=== PATIENT | male | born 1975 | race Caucasian/White ===

== ENCOUNTER 2021-04-16 10:09 | Outpatient (CLI) | payer OTHER, SELFPAY ==
--- NOTE | ~2021-04-16 | XR_ITS ---
XR chest 2V DATE: 04/16/2021 10:39 INDICATION: Chronic cough for one month. Smoker. TECHNIQUE: PA and lateral views COMPARISON: None FINDINGS: Normal heart size. No hilar or mediastinal enlargement. There is moderate hyperinflation of the lungs. No pulmonary infiltrate or consolidation, pleural effu steve or pulmonary vascular congestion or pneumothorax is detected. IMPRESSION: Moderate hyperinflation; no active cardiopulmonary disease Reviewed, dictated and finalized at location B.
[2021-04-16 10:50] LABS: Basophils Absolute Auto 0.03 K/mm3 (0.00-0.10); Basophils Percent Auto 0.3 % (0.0-1.0); Eosinophils Absolute Auto 0.09 K/mm3 (0.02-0.50); Hematocrit 38.5 % (40.0-54.0); Hemoglobin 13.3 g/dL (14.0-18.0); Immature Granulocyte Absolute 0.04 K/mm3 (0.00-0.00); Immature Granulocyte Percent A 0.4 % (0.0-0.0); Lymphocytes Absolute Auto 1.83 K/mm3 (1.10-4.50); Lymphocytes Percent Auto 19.9 % (18.0-42.0); Mean Corpuscular HGB Conc 34.5 g/dL (32.0-36.0); Mean Corpuscular Hemoglobin 34.2 pg (27.0-31.0); Mean Platelet Volume 10.2 fl (8.7-11.0); Monocytes Absolute Auto 0.98 K/mm3 (0.10-0.90); Monocytes Percent Auto 10.6 % (2.0-11.0); Neutrophils Absolute Auto 6.2 K/mm3 (1.7-7.2); Neutrophils Percent Auto 67.8 % (50.0-70.0); Platelet Count Result 246 K/mm3 (150-420); Red Blood Count 3.89 M/mm3 (4.70-6.10); Red Cell Distribution Width 13.3 % (11.6-14.4); White Blood Count 9.2 K/mm3 (4.8-10.8)
[2021-04-16 10:53] LABS: Add Urine Microscopic? YES; Appearance Urine Clear (Clear); Bilirubin Urine 2+ (Negative); Blood Urine Negative (Negative); Color Urine Dark Yellow (Yellow); Glucose Urine UA Negative (Negative); Ketones Urine Trace (Negative); Leukocyte Esterase Ur Negative (Negative); Nitrate Urine Negative (Negative); Protein Urine 2+ (Negative); Specific Grav Ur >= 1.030 (1.010-1.020); pH Urine 5.5 (5.0-8.0)
[2021-04-16 10:59] LABS: Bacteria Urine Trace /hpf; RBC Urine None seen /hpf (0-2); Squamous Epithelial Cell Urine Few /hpf (Few); WBC Urine None seen /hpf (0-3)
[2021-04-16 11:30] LABS: Alanine Aminotransferase 111 U/L (16-63); Albumin Level 4.2 g/dL (3.4-5.0); Alkaline Phosphatase 135 U/L (46-116); Anion Gap 13 mmol/L (8-16); Aspartate Amino Transferase 124 U/L (15-37); Bilirubin,Total 0.9 mg/dL (0.00-1.00); Blood Urea Nitrogen 13 mg/dL (7-18); Calcium 9.1 mg/dL (8.5-10.1); Carbon Dioxide 26 mmol/L (21-32); Chloride 100 mmol/L (98-108); Estimated Glomerular Filt Rate > 60; Glucose 110 mg/dL (70-99); Osmolality Calculated 289 mOsm/kg (285-295); Potassium 3.8 mmol/L (3.5-5.1); Sodium 139 mmol/L (136-145); Thyroid Stimulating Hormone 3.04 uIU/mL (0.36-3.74); Total Protein 7.5 g/dL (6.4-8.2)
[2021-04-16 11:38] LABS: SARS-CoV-2 RNA PCR Negative (Negative)
[2021-04-20 14:24] LABS: SARS-CoV-2 IgG <1.00 Index (<1.00)
== END 2021-04-16 10:10 | disposition home or self-care (01) ==
PROVIDERS: PCP Internal Medicine; Visit Provider Internal Medicine
DX: R05.3 Chronic cough (principal); I10 Essential (primary) hypertension; Z20.822 Contact with and (suspected) exposure to COVID-19
CPT/HCPCS: 36415; 71046; 80053; 81001; 84443; 85025; 86769; C9803; U0003; U0005

== ENCOUNTER 2021-05-09 19:33 | Emergency (ER) | payer OTHER, SELFPAY ==
[2021-05-09 19:44] VITALS: BP 136/88; PULSE 123; RESP 18; TEMP 36.9; O2SAT 99
--- NOTE | 2021-05-09 19:48 | ED.OVERDOSE ---
HPI - Overdose General Chief Complaint: Psychiatric Symptoms Stated Complaint: ambulance Source: patient History of Present Illness HPI Narrative: Patient did methamphetamine 2 days ago and now experiencing paranoia and hallucinations. Due to the methamphetamine use he has not slept in the last 2 days as well. complaint: accidental overdose Onset (ago): day(s) (2) How Overdose Was Discovered: called 911 Context: Accidental Overdose: wanted to get high Associated symptoms: paranoia and hallucinations Treatments Prior to Arrival: none Related Data Home Medications Medication Instructions Recorded Confirmed atenolol 50 mg PO DAILY 05/09/21 05/09/21 fluticasone propion-salmeterol 250 inh INHALATION PRN PRN 05/09/21 05/09/21 quetiapine 25 mg PO DAILY 05/09/21 05/09/21 Allergies Allergy/AdvReac Type Severity Reaction Status Date / Time No Known Allergies Allergy Verified 05/09/21 19:41 Review of Systems Review of Systems: All systems reviewed & are unremarkable except as noted in HPI and below PMFSH Past Medical History Medical History (Updated 05/09/21 @ 21:32 by Myke Ovalle MD) COPD (chronic obstructive pulmonary disease) Hypertension Social History Social History (Updated 05/09/21 @ 22:32 by Myke Ovalle MD) Smoking packs per day: 1 Smoking cigarettes per day: 20.0 Smoking status: Current every day smoker Tobacco type: cigarettes Substance use: current Substance use type: marijuana, sedatives and methamphetamine Exam Const: General: healthy appearing, no acute distress and alert HENMT: Head: normal to inspection Ears: external ears normal Mouth: Yes moist mucous membranes Eyes: Periorbital: periorbital findings normal Eyelids: eyelids normal Conjunctivae: conjunctivae normal Sclera: sclerae normal Pupils: Dilated pupils bilaterally EOM: EOMs intact bilaterally Neck: Neck: normal visual inspection Resp: Effort & Inspection: normal respiratory effort Auscultation: clear to auscultation bilaterally Cardio: Rate: regular rate Rhythm: regular rhythm GI: GI Palp: Yes Soft to palpation, No Tenderness to palpation present (GI) and No Guarding due to palpation present (GI) Auscultation: normal bowel sounds Back/Spine/Pelvis: Cervical Spine: cervical ROM normal Thoracic/Lumbar Spine: thoraco-lumbar ROM normal Skin: General skin exam: normal color Rashes: no rashes Neuro: General: patient oriented x3, moves all extremities, no meningeal signs and no focal motor deficits Speech: normal speech Gait exam (Neuro): Normal gait present Motor exam (neuro): 5/5 motor strength present throughout and Motor abnormalities not present Extrem: General: normal to inspection and no clubbing, cyanosis or edema Psych: Appearance: grossly normal Speech and movement: Clear speech present Affect: Anxious affect present Attitude: cooperative Thought process: Circumstantial thought process present Thought content: Yes Paranoid delusions present Course Course Emergency Course: Patient has a responsible green party to come and get him. He had 1 mg of Ativan which has helped him calm down and focus better. He feels comfortable going home. Vital Signs Vital signs: Vital Signs Temperature 36.9 C 05/09/21 19:44 Pulse Rate 123 H 05/09/21 19:44 Respiratory Rate 18 05/09/21 19:44 Blood Pressure 136/88 05/09/21 19:44 Pulse Oximetry 99 05/09/21 19:44 Temperature 36.9 C 05/09/21 19:44 Pulse Rate 123 H 05/09/21 19:44 Respiratory Rate 18 05/09/21 19:44 Blood Pressure 136/88 05/09/21 19:44 Pulse Oximetry 99 05/09/21 19:44 Discharge Plan Discharge Clinical Impression: Amphetamine or stimulant drug abuse Patient Disposition: Home, Self-Care Condition: Stable Instructions: Methamphetamine Abuse (ED) Prescriptions: No Action quetiapine 25 mg tablet 25 mg PO DAILY RF: 0 fluticasone propion-salmeterol 250-50 mcg/dose blister with device
[2021-05-09] MEDS: LORazepam (*CRX) 1 MG TABLET PO (20:03)
[2021-05-09 20:07] LABS: Basophils Absolute Auto 0.03 K/mm3 (0.00-0.10); Basophils Percent Auto 0.2 % (0.0-1.0); Eosinophils Absolute Auto 0.03 K/mm3 (0.02-0.50); Eosinophils Percent Auto 0.2 % (1.0-6.0); Hematocrit 34.7 % (40.0-54.0); Hemoglobin 12.3 g/dL (14.0-18.0); Immature Granulocyte Absolute 0.12 K/mm3 (0.00-0.00); Immature Granulocyte Percent A 0.6 % (0.0-0.0); Lymphocytes Absolute Auto 0.75 K/mm3 (1.10-4.50); Mean Corpuscular HGB Conc 35.4 g/dL (32.0-36.0); Mean Corpuscular Hemoglobin 35.2 pg (27.0-31.0); Mean Corpuscular Volume 99.4 fL (78.0-102.0); Mean Platelet Volume 10.2 fl (8.7-11.0); Monocytes Absolute Auto 1.06 K/mm3 (0.10-0.90); Monocytes Percent Auto 5.7 % (2.0-11.0); Neutrophils Absolute Auto 16.5 K/mm3 (1.7-7.2); Neutrophils Percent Auto 89.3 % (50.0-70.0); Platelet Count Result 255 K/mm3 (150-420); Red Blood Count 3.49 M/mm3 (4.70-6.10); Red Cell Distribution Width 12.7 % (11.6-14.4); White Blood Count 18.5 K/mm3 (4.8-10.8)
[2021-05-09 20:17] LABS: Alanine Aminotransferase 43 U/L (16-63); Albumin Level 4.7 g/dL (3.4-5.0); Alkaline Phosphatase 89 U/L (46-116); Anion Gap 14 mmol/L (8-16); Aspartate Amino Transferase 56 U/L (15-37); Bilirubin,Total 1.4 mg/dL (0.00-1.00); Blood Urea Nitrogen 21 mg/dL (7-18); Calcium 9.7 mg/dL (8.5-10.1); Carbon Dioxide 26 mmol/L (21-32); Chloride 96 mmol/L (98-108); Estimated CRCL calculation 51 ml/min; Estimated Glomerular Filt Rate 48; Glucose 103 mg/dL (70-99); Osmolality Calculated 285 mOsm/kg (285-295); Potassium 3.3 mmol/L (3.5-5.1); Sodium 136 mmol/L (136-145); Total Protein 8.3 g/dL (6.4-8.2)
[2021-05-09 20:18] LABS: Acetaminophen < 2 ug/mL (10-30); Amphetamine Screen Urine Positive (Negative); Barbiturate Screen Urine Negative (Negative); Benzodiazepines Screen Urine Positive (Negative); Cannabinoid Screen Urine Positive (Negative); Cocaine Screen Urine Negative (Negative); Ethanol < 3 mg/dL (0-6); Methadone Screen Urine Negative (Negative); Opiate Screen Urine Negative (Negative); Phencyclidine Screen Urine Negative (Negative)
[2021-05-09 21:31] VITALS: BP 137/82; PULSE 104; RESP 18; O2SAT 96
== END 2021-05-09 21:35 | disposition home or self-care (01) ==
PROVIDERS: Emergency Provider Emergency Medicine; PCP Internal Medicine
DX: F15.10 Other stimulant abuse, uncomplicated (principal)
CPT/HCPCS: 36415; 80053; 80307; 85025; 99283; A9270

== ENCOUNTER 2021-09-05 17:23 | Emergency (ER) | payer OTHER, SELFPAY ==
--- NOTE | ~2021-09-05 | CT_ITS ---
EXAMINATION: CT abdomen pelvis wo con DATE: 09/05/2021 19:10 INDICATION: Renal stone presenting with left flank pain TECHNIQUE: Computed tomography (CT) of the abdomen and pelvis was performed without intravenous contr ast. Automated exposure control and iterative reconstruction technique were employed. The dose-length product was 176.98 mGy-cm. COMPARISON: 08/10/2014 FINDINGS: Unchanged 4 mm noncalcified granuloma in the right lower lobe. There are additional small calcified g ranuloma at the left lower lobe and lingula. Heart size is normal. No pericardial or pleural effusion . Diffuse hepatic steatosis. Gallbladder, spleen, pancreas, bilateral adrenal glands are normal. Kidn eys and ureters are normal with no urolithiasis, hydroureteronephrosis or perinephric/ureteral strand ing. Bladder is normal. Bowels are normal. The appendix is not visualized. No pericecal inflammatory change to suggest acute appendicitis. No free intraperitoneal gas or fluid. No pathologically enlarge d abdominal or pelvic lymphadenopathy. Mild lumbar spondylosis. IMPRESSION: 1. No urolithiasis or acute intra-abdominal/pelvic process. 2. Diffuse hepatic steatosis. Reviewed, dictated and finalized at location A. ICE MEMBER
--- NOTE | 2021-09-05 17:36 | ED.ABDPAIN ---
HPI - Abdominal Pain General Chief Complaint: Abdominal Pain Stated Complaint: ab pain on left side Time Seen by Provider: 09/05/21 17:36 Source: patient Mode of arrival: ambulatory History of Present Illness HPI narrative: 45-year-old male, alcoholic with a past medical history of hypertension, kidney stones, presents to the ER with left flank pain for the past 3 days. The patient also complained of some gastric upset for which he has been taking Cora TELLEZ elicited complaint: flank pain Pertinent past history: none Onset (ago): day(s) ( 3 days) Pain Consistency: intermittent Location: L flank Severity: severe Quality: aching Radiation: L flank Migration to: no migration Exacerbating factors: nothing Relieving factors: nothing Associated symptoms: denies other symptoms Related Data Home Medications Medication Instructions Recorded Confirmed atenolol 50 mg PO DAILY 05/09/21 09/05/21 quetiapine [Seroquel] 25 mg PO HS 05/09/21 09/05/21 Allergies Allergy/AdvReac Type Severity Reaction Status Date / Time No Known Allergies Allergy Verified 09/05/21 17:52 Review of Systems Review of Systems: All systems reviewed & are unremarkable except as noted in HPI and below Constitutional: Constitutional: Reports as per HPI Eyes: Eyes: Reports as per HPI ENT: Reports system reviewed and no additional complaints, except as documented Cardiovascular: Cardiovascular: Reports as per HPI and Reports no additional cardiovascular complaints Respiratory: Respiratory: Reports as per HPI and Reports no additional respiratory complaints Gastrointestinal: Gastrointestinal: Reports as per HPI, Reports no additional gastrointestinal complaints and Reports heartburn Comments: left flank pain Genitourinary: Genitourinary: Reports no additional male genitourinary complaints Comments: denied dysuria or hematuria Musculoskeletal: Musculoskeletal: Reports no additional musculoskeletal complaints and Reports as per HPI Integumentary/Breasts: Skin/Breast: Reports system reviewed and no additional complaints, except as docu Neurologic: Reports system reviewed and no additional complaints, except as documented Psychiatric: Psychiatric: Reports no additional psychiatric complaints Endocrine: Endocrine: Reports no additional endocrine complaints Hematologic/Lymphatic: Hematologic/Lymphatic: Reports no additional hematologic/lymphatic complaints Allergic/Immunologic: Allergic/Immunologic: Reports no additional allergic/immunologic complaints [facility] Past Medical History Medical History (Updated 09/05/21 @ 19:58 by King Vila MD) COPD (chronic obstructive pulmonary disease) Hypertension Kidney stone Social History Social History Smoking packs per day: 1 Smoking cigarettes per day: 20.0 Smoking status: Current every day smoker Tobacco type: cigarettes Substance use: current Substance use type: marijuana, sedatives and methamphetamine Exam Const: General: no acute distress and alert Orientation/consciousness: patient oriented x3 HENMT: Head: normal to inspection Eyes: Conjunctivae: conjunctivae normal Pupils: Equal, round and reactive pupils present Neck: Neck: normal visual inspection and no lymphadenopathy Chest: Chest palpation & inspection: normal inspection of the chest Resp: Effort & Inspection: normal respiratory effort Auscultation: clear to auscultation bilaterally Cardio: Rate: regular rate GI: GI Palp: Yes Soft to palpation and Yes Tenderness to palpation present (GI) Other: tenderness in the left flank and the left CVA angle. No rigidity /rebound : General: Yes CVA tenderness Back/Spine/Pelvis: Back: no CVA tenderness Skin: General skin exam: normal color Rashes: no rashes Neuro: General: patient oriented x3 Extrem: General: normal to inspection Psych: Mental Status: mental status grossly normal Cour
[2021-09-05 17:44] VITALS: BP 122/84; PULSE 96; RESP 20; TEMP 36.6; O2SAT 96
[2021-09-05 18:14] LABS: Basophils Absolute Auto 0.02 K/mm3 (0.00-0.10); Basophils Percent Auto 0.2 % (0.0-1.0); Hematocrit 42.8 % (40.0-54.0); Hemoglobin 14.2 g/dL (14.0-18.0); Immature Granulocyte Absolute 0.04 K/mm3 (0.00-0.00); Immature Granulocyte Percent A 0.4 % (0.0-0.0); Lymphocytes Percent Auto 24.2 % (18.0-42.0); Mean Corpuscular HGB Conc 33.2 g/dL (32.0-36.0); Mean Corpuscular Volume 99.5 fL (78.0-102.0); Mean Platelet Volume 10.2 fl (8.7-11.0); Monocytes Absolute Auto 0.94 K/mm3 (0.10-0.90); Monocytes Percent Auto 9.1 % (2.0-11.0); Neutrophils Absolute Auto 6.7 K/mm3 (1.7-7.2); Neutrophils Percent Auto 65.1 % (50.0-70.0); Platelet Count Result 257 K/mm3 (150-420); Red Cell Distribution Width 12.8 % (11.6-14.4); White Blood Count 10.3 K/mm3 (4.8-10.8)
[2021-09-05] MEDS: KETOROLAC 30 MG/ML VIAL (*BKC) IV PUSH (18:17)
[2021-09-05] MEDS: SODIUM CHLORIDE 0.9% IV 500 ML 999 ML IV CONT (18:17)
[2021-09-05 18:29] LABS: Partial Thromboplastin Time 25.6 SEC (23.90-30.70); Prothrombin Time 10.3 Seconds (9.50-12.10)
[2021-09-05 18:30] LABS: Alanine Aminotransferase 160 U/L (16-63); Alkaline Phosphatase 85 U/L (46-116); Anion Gap 9 mmol/L (8-16); Aspartate Amino Transferase 115 U/L (15-37); Bilirubin,Total 0.3 mg/dL (0.00-1.00); Blood Urea Nitrogen 11 mg/dL (7-18); Calcium 8.2 mg/dL (8.5-10.1); Carbon Dioxide 30 mmol/L (21-32); Chloride 106 mmol/L (98-108); Estimated CRCL calculation 98 ml/min; Estimated Glomerular Filt Rate > 60; Glucose 103 mg/dL (70-99); Lipase 148 U/L (73-393); Osmolality Calculated 299 mOsm/kg (285-295); Potassium 3.5 mmol/L (3.5-5.1); Sodium 145 mmol/L (136-145); Total Protein 7.5 g/dL (6.4-8.2)
[2021-09-05 18:32] LABS: Add Urine Microscopic? NO; Appearance Urine Clear (Clear); Bilirubin Urine Negative (Negative); Blood Urine Negative (Negative); Color Urine Light Yellow (Yellow); Glucose Urine UA Negative (Negative); Ketones Urine Negative (Negative); Leukocyte Esterase Ur Negative (Negative); Nitrate Urine Negative (Negative); Protein Urine Negative (Negative); Specific Grav Ur <= 1.005 (1.010-1.020); Urobilinogen Urine 0.2 mg/dL (0.2-1.0)
[2021-09-05 18:35] LABS: Lactic Acid Reflex 1.6 mmol/L (0.4-2.0)
[2021-09-05] MEDS: HYDROmorphone HCL INJ (*CRX) 2 MG/ML VIAL 0.5 MG IV PUSH (19:13)
[2021-09-05] MEDS: ONDANSETRON HCL ODT 4 MG TABLET PO (19:14)
[2021-09-05 20:04] VITALS: PULSE 88; RESP 16; TEMP 36.6; O2SAT 98
== END 2021-09-05 20:06 | disposition home or self-care (01) ==
PROVIDERS: Emergency Provider Internal Medicine Critical Care Medicine; PCP Internal Medicine
DX: R10.9 Unspecified abdominal pain (principal); K70.0 Alcoholic fatty liver
CPT/HCPCS: 36415; 74176; 80053; 81003; 83605; 83690; 85025; 85610; 85730; 96361; 96374; 96375; 99284; A9270; J1170; J1885; J7040

== ENCOUNTER 2021-09-09 09:37 | Emergency (ER) | payer OTHER, SELFPAY ==
--- NOTE | ~2021-09-09 | XR_ITS ---
EXAMINATION: XR chest 1V portable 09/09/2021 11:34 INDICATION: Left lower chest wall pain PROCEDURE: AP portable chest COMPARISON: 04/16/2021 FINDINGS: The lungs are clear. The cardiomediastinal silhouette is within normal limits. There are no pleural effusions. There is no pneumothorax suspected. IMPRESSION: 1: NO ACUTE CARDIOPULMONARY DISEASE. Reviewed, dictated and finalized at location B. [employer] SUPERVISOR
--- NOTE | ~2021-09-09 | CT_ITS ---
EXAMINATION: CT abdomen pelvis w con DATE: 09/09/2021 11:22 INDICATION: Left-sided transient bruising and pain for 4 days. TECHNIQUE: Computed tomography (CT) of the abdomen and pelvis was performed with 100 cc Omnipaque 350 intravenous contrast. The dose-length product was 329.02 mGy-cm. Automated exposure control and iter ative reconstruction technique were employed. COMPARISON: CT dated 09/05/2021. FINDINGS: Lung bases are unremarkable. No significant pleural or pericardial effusion. Fatty infiltration of the liver. The spleen, pancreas, adrenal glands and kidneys are unremarkable. N o significant soft tissue abnormality. No free air or free fluid. Colonic diverticulosis without dive rticulitis. No significant vascular abnormality. No lymphadenopathy. Gallbladder is present. No free air or free fluid. Small fat-containing umbilical hernia. No acute osseous abnormality. There is subt le asymmetric prominence of the left lateral abdominal wall musculature without discrete mass or flui d collection. IMPRESSION: 1. No acute abdominal abnormality identified. Reviewed, dictated and finalized at location B. 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
[2021-09-09 09:49] VITALS: BP 168/107; PULSE 94; RESP 16; TEMP 37.1; O2SAT 98
--- NOTE | 2021-09-09 10:07 | ECG_ITS ---
Measurements Intervals Sloan Rate: 80 P: 58 NH: 141 QRS: 74 QRSD: 91 T: 60 QT: 346 QTc: 401 Interpretive Statements SINUS RHYTHM NORMAL ECG Electronically Signed On 09-09-2021 13:38:23 VALIDATION LEADER by Jelani Rothman D.O.
[2021-09-09 10:33] LABS: Basophils Absolute Auto 0.02 K/mm3 (0.00-0.10); Basophils Percent Auto 0.2 % (0.0-1.0); Eosinophils Absolute Auto 0.04 K/mm3 (0.02-0.50); Eosinophils Percent Auto 0.3 % (1.0-6.0); Hematocrit 41.3 % (40.0-54.0); Hemoglobin 13.7 g/dL (14.0-18.0); Immature Granulocyte Absolute 0.08 K/mm3 (0.00-0.00); Immature Granulocyte Percent A 0.7 % (0.0-0.0); Lymphocytes Absolute Auto 0.82 K/mm3 (1.10-4.50); Lymphocytes Percent Auto 6.7 % (18.0-42.0); Mean Corpuscular HGB Conc 33.2 g/dL (32.0-36.0); Mean Corpuscular Hemoglobin 32.7 pg (27.0-31.0); Mean Corpuscular Volume 98.6 fL (78.0-102.0); Monocytes Absolute Auto 0.71 K/mm3 (0.10-0.90); Monocytes Percent Auto 5.8 % (2.0-11.0); Neutrophils Absolute Auto 10.6 K/mm3 (1.7-7.2); Neutrophils Percent Auto 86.3 % (50.0-70.0); Platelet Count Result 235 K/mm3 (150-420); Red Blood Count 4.19 M/mm3 (4.70-6.10); Red Cell Distribution Width 12.7 % (11.6-14.4); White Blood Count 12.3 K/mm3 (4.8-10.8)
[2021-09-09 10:38] LABS: Add Urine Microscopic? YES; Appearance Urine Clear (Clear); Bilirubin Urine Negative (Negative); Blood Urine Negative (Negative); Color Urine Light Yellow (Yellow); Glucose Urine UA Negative (Negative); Ketones Urine Trace (Negative); Leukocyte Esterase Ur Negative (Negative); Nitrate Urine Negative (Negative); Protein Urine 1+ (Negative); Urobilinogen Urine 0.2 mg/dL (0.2-1.0); pH Urine 7.5 (5.0-8.0)
[2021-09-09 10:46] LABS: Bacteria Urine None seen /hpf; Mucus Urine Few /lpf; RBC Urine 0-2 /hpf (0-2); Squamous Epithelial Cell Urine Rare /hpf (Few); WBC Urine 0-3 /hpf (0-3)
[2021-09-09 10:48] LABS: INR 0.9; Partial Thromboplastin Time 25.4 SEC (23.90-30.70)
[2021-09-09] MEDS: ONDANSETRON INJ 4 MG/2 ML VIAL IV PUSH (10:50)
[2021-09-09] MEDS: THIAMINE HCL INJ 100 MG, FOLIC ACID 1 MG, MULTIVITAMINS-12 INJ 10 ML, MAGNESIUM SULFATE... 1000 MG IV CONT (10:50)
[2021-09-09] MEDS: MORPHINE SULFATE (*CRX) 2 MG/ML INJ IV PUSH (10:51)
[2021-09-09 10:53] LABS: Alanine Aminotransferase 166 U/L (16-63); Albumin Level 4.1 g/dL (3.4-5.0); Alkaline Phosphatase 84 U/L (46-116); Anion Gap 10 mmol/L (8-16); Aspartate Amino Transferase 112 U/L (15-37); Bilirubin,Total 0.4 mg/dL (0.00-1.00); Blood Urea Nitrogen 18 mg/dL (7-18); Calcium 9.4 mg/dL (8.5-10.1); Carbon Dioxide 31 mmol/L (21-32); Chloride 101 mmol/L (98-108); Estimated CRCL calculation 102 ml/min; Estimated Glomerular Filt Rate > 60; Glucose 127 mg/dL (70-99); Osmolality Calculated 297 mOsm/kg (285-295); Sodium 142 mmol/L (136-145); Total Protein 7.6 g/dL (6.4-8.2); Troponin I 6.3 ng/L (0.00-60.4)
[2021-09-09 10:54] LABS: Lactic Acid Reflex 0.9 mmol/L (0.4-2.0)
--- NOTE | 2021-09-09 11:15 | PC.NURSE ---
IV fluids stopped at 11:10
[2021-09-09 11:39] VITALS: BP 152/91; PULSE 89; RESP 18; TEMP 36.9; O2SAT 99
--- NOTE | 2021-09-09 12:00 | ED.BACK ---
HPI - Back Pain/Injury General Chief Complaint: Back Pain/Injury Stated Complaint: bruising on lt side/shaking/nauseous Time Seen by Provider: 09/09/21 09:41 Source: patient, EMS and RN notes reviewed Mode of arrival: EMS Limitations: no limitations History of Present Illness MD elicited complaint: fall Onset (ago): hour(s) (2) Timing: constant Severity: mild Pain scale (0-10): 5 Quality: dull and aching Radiation: abdomen (pt hit the abdomen when he fell) Exacerbating factors: none Relieving factors: none Context: fall Associated symptoms: denies other symptoms Work related injury: No Related Data Home Medications Medication Instructions Recorded Confirmed atenolol 50 mg PO DAILY 05/09/21 09/09/21 quetiapine [Seroquel] 25 mg PO HS 05/09/21 09/09/21 Allergies Allergy/AdvReac Type Severity Reaction Status Date / Time No Known Allergies Allergy Verified 09/09/21 09:55 Review of Systems Review of Systems: All systems reviewed & are unremarkable except as noted in HPI and below PMFSH Past Medical History Medical History Abdominal wall contusion Alcohol intoxication COPD (chronic obstructive pulmonary disease) Hypertension Kidney stone Social History Social History Smoking packs per day: 1 Smoking cigarettes per day: 20.0 Smoking status: Current every day smoker Tobacco type: cigarettes Substance use: current Substance use type: marijuana, sedatives and methamphetamine Exam Const: General: no acute distress and alert Nutritional Appearance: thin Orientation/consciousness: patient oriented x3 Limitations: no limitations HENMT: Head: normal to inspection Ears: external ears normal, TM's normal bilaterally and EAC's normal General nose exam: Normal external nose present and Normal nares present Face and sinus: normal facial exam and sinuses nontender Mouth: Yes lip normal and Yes moist mucous membranes Teeth and gingiva: dentition normal Eyes: Conjunctivae: conjunctivae normal Pupils: Equal, round and reactive pupils present EOM: EOMs intact bilaterally Neck: Neck: normal visual inspection and no lymphadenopathy Chest: Chest palpation & inspection: normal inspection of the chest Resp: Effort & Inspection: normal respiratory effort Auscultation: clear to auscultation bilaterally Cardio: Rate: regular rate Rhythm: regular rhythm GI: GI Palp: Yes Soft to palpation and Yes Tenderness to palpation present (GI) (abdominal wall tenderness) : General: Yes bladder normal to palpation and Yes no CVA tenderness Male General Exam: Yes normal external exam Testes: Testes normal Back/Spine/Pelvis: Back: no CVA tenderness Skin: General skin exam: normal color Neuro: General: patient oriented x3, moves all extremities, no meningeal signs, no focal motor deficits and CN's II-XI intact bilaterally Extrem: General: normal to inspection and no pedal edema Psych: Appearance: grossly normal Mental Status: mental status grossly normal Affect: normal affect Attitude: cooperative Thought content: Yes Normal thought content present Course Course Emergency Course: Pt was stable in the ED. Less painful and no acute GI loss. Reevaluation(s) Reevaluation #1: VSS Date: 09/09/21 Time: 10:40 Vital Signs Vital signs: Vital Signs Temperature 37.1 C 09/09/21 09:49 Pulse Rate 94 09/09/21 09:49 Respiratory Rate 16 09/09/21 09:49 Blood Pressure 168/107 H 09/09/21 09:49 Pulse Oximetry 98 09/09/21 09:49 Temperature 36.8 C 09/09/21 12:16 Pulse Rate 75 09/09/21 12:16 Respiratory Rate 16 09/09/21 12:16 Blood Pressure 152/88 H 09/09/21 12:16 Pulse Oximetry 97 09/09/21 12:16 MDM - Back Pain/Injury Differential Diagnosis Differential diagnosis: Likely sciatica and strain of lumbar region Medical Records Attestation: I reviewed the patient's medical r
[2021-09-09 12:16] VITALS: BP 152/88; PULSE 75; RESP 16; TEMP 36.8; O2SAT 97
== END 2021-09-09 12:23 | disposition home or self-care (01) ==
PROVIDERS: Emergency Provider Emergency Medicine; PCP Internal Medicine
DX: F10.920 Alcohol use, unspecified with intoxication, uncomplicated (principal); S30.1XXA Contusion of abdominal wall, initial encounter
CPT/HCPCS: 36415; 71045; 74177; 80053; 81001; 83605; 84484; 85025; 85610; 85730; 93005; 96365; 96375; 99284; A4565; J2270; J2405; J3411; J3475; J7030; Q9967

== ENCOUNTER 2021-11-19 18:49 | Emergency (ER) | payer OTHER, SELFPAY ==
[2021-11-19 18:56] VITALS: BP 160/103; PULSE 120; RESP 20; TEMP 36.3; O2SAT 95
--- NOTE | 2021-11-19 18:56 | ED.SEIZURE ---
HPI - Seizure General Chief Complaint: Alcohol <Myke Ovalle MD - Last Filed: 11/19/21 22:16> Stated Complaint: AMB <Myke Ovalle MD - Last Filed: 11/19/21 22:16> Time Seen by Provider: 11/19/21 18:56 <Myke Ovalle MD - Last Filed: 11/19/21 22:16> Source: patient, EMS and RN notes reviewed <Myke Ovalle MD - Last Filed: 11/19/21 22:16> Mode of arrival: EMS <Myke Ovalle MD - Last Filed: 11/19/21 22:16> Limitations: no limitations <Myke Ovalle MD - Last Filed: 11/19/21 22:16> History of Present Illness HPI Narrative: Patient is brought to the ER after having a seizure. This is a first-time seizure. He was postictal on scene and in the ambulance. He was combative as he did not know what was going on around him. He would not allow EMS to do a Accu-Chek or place an IV. I was able to get history of the events from the 2 friends that were at the house with them. They said that he started shaking all over and then rolled off the couch, his friend helped him down to the floor and the seizure lasted they say 4-5 minutes. He had no loss of urine or bowel. Afterwards he was more combative and confused. His friend states that he did not drink as much alcohol today as he normally does and that he may have been out of alcohol for several hours. They say that he drinks daily on a regular basis. He also says that he has been out of his medications for several days. <Myke Ovalle MD - Last Filed: 11/19/21 22:16> MD complaint: seizure <Myke Ovalle MD - Last Filed: 11/19/21 22:16> Description of Episode: tonic-clonic movement <Myke Ovalle MD - Last Filed: 11/19/21 22:16> -: minutes(s) (4-5) <Myke Ovalle MD - Last Filed: 11/19/21 22:16> Witnessed: Yes - by Bystander <Myke Ovalle MD - Last Filed: 11/19/21 22:16> Trauma: No <Myke Ovalle MD - Last Filed: 11/19/21 22:16> Seizure History: No <Myke Ovalle MD - Last Filed: 11/19/21 22:16> Place: home <Myke Ovalle MD - Last Filed: 11/19/21 22:16> Possible Precipitating Event: alcohol withdrawal <Myke Ovalle MD - Last Filed: 11/19/21 22:16> Associated symptoms: confusion <Myke Ovalle MD - Last Filed: 11/19/21 22:16> Treatments prior to arrival: none <Myke Ovalle MD - Last Filed: 11/19/21 22:16> Related Data Home Medications: Home Medications Medication Instructions Recorded Confirmed atenolol 50 mg PO DAILY 05/09/21 11/19/21 quetiapine [Seroquel] 25 mg PO HS 05/09/21 11/19/21 <Myke Ovalle MD - Last Filed: 11/19/21 22:16> Allergies/Adverse Reactions: Allergies Allergy/AdvReac Type Severity Reaction Status Date / Time No Known Allergies Allergy Verified 09/09/21 09:55 <Myke Ovalle MD - Last Filed: 11/19/21 22:16> Review of Systems Review of Systems: All systems reviewed & are unremarkable except as noted in HPI and below <Myke Ovalle MD - Last Filed: 11/19/21 22:16> [facility] Past Medical History Medical History: Medical History Abdominal wall contusion Alcohol intoxication COPD (chronic obstructive pulmonary disease) Hypertension Kidney stone <Myke Ovalle MD - Last Filed: 11/19/21 22:16> Social History Social History: Social History Smoking packs per day: 1 Smoking cigarettes per day: 20.0 Smoking status: Current every day smoker Tobacco type: cigarettes Substance use: current Substance use type: marijuana, sedatives and methamphetamine <Myke Ovalle MD - Last Filed: 11/19/21 22:16> Exam Const: General: healthy appearing, no acute distress and alert <Myke vOalle MD - Last Filed: 11/19/21 22:16> Nutritional Appearance: well nourished <Myke Ovalle MD - Last Filed: 11/19/21 22:16> Orientation/consciousness: confusion ( but is oriented to
[2021-11-19 19:19] LABS: Basophils Absolute Auto 0.02 K/mm3 (0.00-0.10); Basophils Percent Auto 0.2 % (0.0-1.0); Eosinophils Absolute Auto 0.01 K/mm3 (0.02-0.50); Eosinophils Percent Auto 0.1 % (1.0-6.0); Hematocrit 40.6 % (40.0-54.0); Hemoglobin 13.9 g/dL (14.0-18.0); Immature Granulocyte Absolute 0.03 K/mm3 (0.00-0.00); Immature Granulocyte Percent A 0.3 % (0.0-0.0); Lymphocytes Absolute Auto 0.74 K/mm3 (1.10-4.50); Lymphocytes Percent Auto 7.5 % (18.0-42.0); Mean Corpuscular HGB Conc 34.2 g/dL (32.0-36.0); Mean Corpuscular Hemoglobin 34.2 pg (27.0-31.0); Mean Platelet Volume 10.4 fl (8.7-11.0); Monocytes Absolute Auto 0.75 K/mm3 (0.10-0.90); Monocytes Percent Auto 7.6 % (2.0-11.0); Neutrophils Absolute Auto 8.3 K/mm3 (1.7-7.2); Neutrophils Percent Auto 84.3 % (50.0-70.0); Platelet Count Result 175 K/mm3 (150-420); Red Blood Count 4.06 M/mm3 (4.70-6.10); Red Cell Distribution Width 11.9 % (11.6-14.4); White Blood Count 9.9 K/mm3 (4.8-10.8)
[2021-11-19 19:20] VITALS: BP 163/100; PULSE 116; RESP 20; O2SAT 94
[2021-11-19 19:38] VITALS: BP 160/93; PULSE 104; RESP 20; O2SAT 95
[2021-11-19 19:45] LABS: Amphetamine Screen Urine Negative (Negative); Barbiturate Screen Urine Negative (Negative); Benzodiazepines Screen Urine Negative (Negative); Cannabinoid Screen Urine Negative (Negative); Cocaine Screen Urine Negative (Negative); Methadone Screen Urine Negative (Negative); Opiate Screen Urine Negative (Negative); Phencyclidine Screen Urine Negative (Negative)
[2021-11-19 19:46] LABS: Alanine Aminotransferase 172 U/L (16-63); Albumin Level 4.7 g/dL (3.4-5.0); Alkaline Phosphatase 94 U/L (46-116); Ammonia 25 umol/L (11-32); Anion Gap 20 mmol/L (8-16); Aspartate Amino Transferase 158 U/L (15-37); Bilirubin,Total 1.1 mg/dL (0.00-1.00); Blood Urea Nitrogen 11 mg/dL (7-18); Calcium 9.5 mg/dL (8.5-10.1); Carbon Dioxide 22 mmol/L (21-32); Chloride 93 mmol/L (98-108); Estimated CRCL calculation 75 ml/min; Estimated Glomerular Filt Rate > 60; Glucose 177 mg/dL (70-99); Osmolality Calculated 283 mOsm/kg (285-295); Potassium 3.4 mmol/L (3.5-5.1); Salicylate 4.1 mg/dL (2.8-20.0); Sodium 135 mmol/L (136-145); Thyroid Stimulating Hormone 5.04 uIU/mL (0.36-3.74); Total Protein 7.9 g/dL (6.4-8.2)
[2021-11-19 19:49] LABS: Acetaminophen 0 ug/mL (10-30); Ethanol < 3 mg/dL (0-6)
[2021-11-19 20:00] VITALS: BP 164/100; PULSE 104; RESP 20; O2SAT 94
[2021-11-19 20:05] LABS: Creatine Kinase 137 U/L (39-308)
[2021-11-19 20:21] VITALS: BP 163/94; PULSE 99; RESP 20; TEMP 36.6; O2SAT 94
[2021-11-19 20:26] VITALS: BP 151/94; PULSE 100; RESP 18; TEMP 36.6; O2SAT 94
== END 2021-11-19 20:37 | disposition left against medical advice (07) ==
PROVIDERS: Emergency Provider Emergency Medicine; PCP Internal Medicine
DX: F10.230 Alcohol dependence with withdrawal, uncomplicated (principal)
CPT/HCPCS: 36415; 80053; 80307; 82140; 82550; 82948; 84443; 85025; 99283

== ENCOUNTER 2024-08-19 16:14 | Outpatient (CLI) | payer OTHER, SELFPAY ==
--- NOTE | ~2024-08-19 | XR_ITS ---
CHEST RADIOGRAPH, PA AND LATERAL CLINICAL HISTORY: HYPERTENSION . COMPARISON: 09/09/2021 TECHNIQUE: PA and lateral views of the chest. FINDINGS The cardiomediastinal silhouette is unremarkable. The lungs are clear. Visualized osseous structures and soft tissues are unremarkable. IMPRESSION: No focal infiltrate or effusion. Reviewed, dictated and finalized at location A. SFORMER TESTER
[2024-08-19 16:33] LABS: Basophils Absolute Auto 0.04 K/mm3 (0.00-0.10); Basophils Percent Auto 0.3 % (0.0-1.0); Eosinophils Absolute Auto 0.27 K/mm3 (0.02-0.50); Eosinophils Percent Auto 1.9 % (1.0-6.0); Hematocrit 44.6 % (40.0-54.0); Hemoglobin 14.6 g/dL (14.0-18.0); Immature Granulocyte Absolute 0.08 K/mm3 (0.00-0.00); Immature Granulocyte Percent A 0.6 % (0.0-0.0); Lymphocytes Absolute Auto 3.18 K/mm3 (1.10-4.50); Lymphocytes Percent Auto 22.5 % (18.0-42.0); Mean Corpuscular HGB Conc 32.7 g/dL (32-36); Mean Corpuscular Hemoglobin 30.9 pg (27.0-31.0); Mean Corpuscular Volume 94.3 fL (78.0-102.0); Mean Platelet Volume 10.1 fl (8.7-11.0); Monocytes Absolute Auto 1.14 K/mm3 (0.10-0.90); Monocytes Percent Auto 8.1 % (2.0-11.0); Neutrophils Percent Auto 66.6 % (50.0-70.0); Platelet Count Result 342 K/mm3 (150-420); Red Blood Count 4.73 M/mm3 (4.70-6.10); Red Cell Distribution Width 11.9 % (11.6-14.4); White Blood Count 14.1 K/mm3 (4.8-10.8)
[2024-08-19 16:34] LABS: Add Urine Microscopic? NO; Appearance Urine Clear (Clear); Bilirubin Urine Negative (Negative); Blood Urine Negative (Negative); Color Urine Light Yellow (Yellow); Glucose Urine UA Negative (Negative); Ketones Urine Negative (Negative); Leukocyte Esterase Ur Negative (Negative); Nitrate Urine Negative (Negative); Protein Urine Negative (Negative); Specific Grav Ur >= 1.030 (1.010-1.020); Urobilinogen Urine 0.2 mg/dL (0.2-1.0)
[2024-08-19 17:13] LABS: Alanine Aminotransferase 32 U/L (16-63); Albumin Level 3.9 g/dL (3.4-5.0); Alkaline Phosphatase 93 U/L (46-116); Anion Gap 7 mmol/L (4-12); Aspartate Amino Transferase 21 U/L (15-37); Bilirubin,Total 0.2 mg/dL (0.00-1.00); Blood Urea Nitrogen 18 mg/dL (7-18); Calcium 9.2 mg/dL (8.5-10.1); Carbon Dioxide 31 mmol/L (21-32); Chloride 104 mmol/L (98-108); Cholesterol 212 mg/dL (0-200); Estimated Glomerular Filt Rate > 60; Glucose 119 mg/dL (70-99); HDL Direct 62 mg/dL (40-60); LDL Cholesterol Calculated 107 mg/dL (<130); Osmolality Calculated 296 mOsm/kg (285-295); Potassium 4.3 mmol/L (3.5-5.1); Sodium 142 mmol/L (136-145); Thyroid Stimulating Hormone 7.33 uIU/mL (0.36-3.74); Total Protein 6.7 g/dL (6.4-8.2); Triglycerides 215 mg/dL (0-150)
== END 2024-08-19 16:15 | disposition home or self-care (01) ==
PROVIDERS: PCP Internal Medicine; Visit Provider Internal Medicine
DX: Z00.00 Encounter for general adult medical examination without abnormal findings (principal); I10 Essential (primary) hypertension; R94.31 Abnormal electrocardiogram [ECG] [EKG]
CPT/HCPCS: 36415; 71046; 80053; 80061; 81003; 84443; 85025